=== PATIENT | female | born 2000 | race Caucasian/White ===

== ENCOUNTER 2022-02-17 21:32 | Emergency (ER) | payer BC, SELFPAY ==
[2022-02-17] VITALS (7 sets, daily range): BP systolic 107–119; BP diastolic 74–98; PULSE 76–95; RESP 17–22; TEMP 36.9; O2SAT 100
--- NOTE | ~2022-02-17 | CT_ITS ---
EXAMINATION: CT abdomen pelvis w con DATE: 02/18/2022 00:16 INDICATION: Low abdominal pain. Diarrhea. TECHNIQUE: Computed tomography (CT) of the abdomen and pelvis was performed with 100 mL Omnipaque 350 intravenous contrast. Automated exposure control and iterative reconstruction technique were employe d. The dose-length product was 526.52 mGy-cm. COMPARISON: None. FINDINGS: The visualized portions of the lung bases demonstrate minimal atelectasis. No pleural effus ion. The heart size is normal. No pericardial effusion. The liver, gallbladder, spleen, pancreas, adr enal glands, and right kidney are normal. There is a 5 mm stone in left kidney. There are no dilated loops of bowel. The appendix is not visualized. There are no pathologically enlarged lymph nodes. The re is physiologic fluid in the pelvis. The bones are unremarkable. IMPRESSION: 1. No etiology for the patient's symptoms. Reviewed, dictated and finalized at location A.
[2022-02-17 22:01] LABS: Basophils Percent Auto 0.5 % (0.2-1.2); Eosinophils Absolute Auto 0.2 K/mm3 (0-0.3); Eosinophils Percent Auto 1.7 % (0-4.4); Hematocrit 42.7 % (37.0-47.0); Hemoglobin 14.2 g/dL (12.0-15.0); Immature Granulocyte Absolute 0.02 K/mm3 (0.00-0.031); Immature Granulocyte Percent A 0.2 % (0-0.5); Lymphocytes Percent Auto 48.9 % (18.3-44.2); Mean Corpuscular HGB Conc 33.3 g/dl (32-36); Mean Corpuscular Hemoglobin 29.6 pg (26-34); Mean Corpuscular Volume 89.1 fl (80-100); Monocytes Absolute Auto 0.6 K/mm3 (0.1-0.6); Monocytes Percent Auto 6.3 % (2.6-8.5); Neutrophils Absolute Auto 3.7 K/mm3 (1.3-6.7); Neutrophils Percent Auto 42.4 % (45.5-73.1); Platelet Count Result 276 k/mm3 (150-375); Red Blood Count 4.79 M/mm3 (4.2-5.4); Red Cell Distribution Width 12.8 % (11.5-14.5); White Blood Count 8.8 K/mm3 (4.5-10.0)
--- NOTE | 2022-02-17 22:59 | ED.ABDPAIN ---
HPI - Abdominal Pain General Chief Complaint: Abdominal Pain <TYSHAWN Andres Last Filed: 02/18/22 01:40> Stated Complaint: DIARRHEA <TYSHAWN Andres Last Filed: 02/18/22 01:40> Time Seen by Provider: 02/17/22 22:00 <TYSHAWN Andres Last Filed: 02/18/22 01:40> Source: patient <TYSHAWN Andres Last Filed: 02/18/22 01:40> Mode of arrival: ambulatory <TYSHAWN Andres Last Filed: 02/18/22 01:40> Limitations: no limitations <TYSHAWN Andres Last Filed: 02/18/22 01:40> History of Present Illness HPI narrative: Patient is a 22-year-old female, with past medical history of IBS, who presents to the ED with report of persistent diarrhea. Patient reports she developed diarrhea on Tuesday. She has since had 11 episodes of diarrhea, 5 of which occurred today. She also reports having intermittent lower abdominal pain and nausea, but denies vomiting. No fevers. No urinary symptoms. Patient does have a history of IBS, but states this feels different. No blood in stool. No melena. <TYSHAWN Andres Last Filed: 02/18/22 01:40> Related Data Allergies/Adverse Reactions: Allergies Allergy/AdvReac Type Severity Reaction Status Date / Time amoxicillin Allergy Unknown Verified 02/17/22 21:36 ceftriaxone [From Rocephin] Allergy Unknown Verified 02/17/22 21:37 sumatriptan Allergy Difficulty Verified 02/17/22 21:37 Breathing <TYSHAWN Andres Last Filed: 02/18/22 01:40> Review of Systems Review of Systems: CONSTITUTIONAL: Denies fever, chills, or sweats. CARDIOVASCULAR: Denies chest pain. RESPIRATORY: Denies dyspnea. GASTROINTESTINAL: Reports lower ABD pain, nausea, diarrhea. Denies rectal bleeding, melena, vomiting. GENITOURINARY: Denies dysuria or hematuria. <Rosa Jay PA-C - Last Filed: 02/18/22 01:40> All systems reviewed & are unremarkable except as noted in HPI and below <Rosa Jay PA-C - Last Filed: 02/18/22 01:40> PMFSH Past Medical History Medical History: Medical History (Updated 02/18/22 @ 01:38 by Rosa Jay PA-C) IBS (irritable bowel syndrome) <Rosa Jay PA-C - Last Filed: 02/18/22 01:40> Surgical History Surgical History: Surgical History (Updated 02/17/22 @ 23:00 by Rosa Jay PA-C) No pertinent past surgical history <Rosa Jay PA-C - Last Filed: 02/18/22 01:40> Social History Social History: Social History (Updated 02/17/22 @ 23:00 by Rosa Jay PA-C) Smoking status: Never smoker <Rosa Jay PA-C - Last Filed: 02/18/22 01:40> Exam Narrative: GENERAL: Well appearing, well-nourished, non-toxic, in no acute distress. HEAD: Normocephalic, atraumatic. NECK: Supple. No adenopathy, no masses. RESPIRATORY: Airway patent, respirations nonlabored. Clear to auscultation bilaterally, no rales, rhonchi, wheezing. CARDIOVASCULAR: Regular rate and rhythm without murmurs, rubs, or gallops. Peripheral pulses 2+ and equal bilaterally. ABDOMINAL: Soft, mild nonlocalized tenderness throughout lower abdomen. Nondistended, no hepatosplenomegaly. Normoactive BS. MUSCULOSKELETAL: Moves all extremities. Strength/ROM intact without gross deformities. SKIN: Warm, dry, normal color. No rashes. NEURO: A&O X3. Speech clear. Cranial nerves II-XII grossly intact. Steady gait. No ataxic movements. PSYCHIATRIC: Appropriate mood and affect. Normal interaction. <Rosa Jay PA-C - Last Filed: 02/18/22 01:40> Course [employer]/PA Physician Supervision For this patient encounter, I reviewed the [employer] or PA documentation, treatment plan, and medical decision making <Satya Calero MD - Last Filed: 02/18/22 02:21> Vital Signs Vital signs: Vital Signs Temperature 98.4 F 02/17/22 21:33 Pulse Rate 86 02/17/22 21:33 Respiratory Rate 20 02/17/22 21:33 Pulse O
[2022-02-17 23:19] LABS: Appearance Urine Slightly Cloudy (Clear); Bilirubin Urine Negative (Negative); Blood Urine 2+ (Negative); Color Urine Yellow (Yellow); Glucose Urine UA Negative (Negative); Ketones Urine Trace mg/dL (Negative); Leukocyte Esterase Ur Trace LEU/UL (Negative); Nitrate Urine Negative (Negative); Protein Urine Negative (Negative); Specific Grav Ur >= 1.030 (1.001-1.035); Urobilinogen Urine 0.2 mg/dL (<2.0)
[2022-02-17 23:22] LABS: Bacteria Urine Trace /hpf; Mucus Urine Rare /lpf; Squamous Epithelial Cell Urine Many /hpf (Few)
[2022-02-17 23:34] LABS: Add Urine Microscopic? YES
[2022-02-17 23:35] LABS: Alanine Aminotransferase 15 U/L (6-35); Albumin Level 4.6 g/dL (3.5-5.1); Alkaline Phosphatase 82 U/L (38-126); Anion Gap 14 mmol/L (8-16); Aspartate Amino Transferase 32 U/L (14-36); Bilirubin,Total 0.3 mg/dL (0.2-1.3); Blood Urea Nitrogen 12 mg/dL (7-17); Calcium 9.4 mg/dL (8.4-10.2); Carbon Dioxide 27 mmol/L (22-30); Chloride 101 mmol/L (98-107); Estimated CRCL calculation 86 ml/min; Estimated Glomerular Filt Rate > 60; Glucose 106 mg/dL (65-110); Lipase 109 U/L (23-300); Potassium 3.4 mmol/L (3.4-5.0); Sodium 142 mmol/L (137-145)
[2022-02-17] MEDS: SODIUM CHLORIDE 0.9% IV 1,000 ML 999 ML IV CONT (23:40)
[2022-02-17] MEDS: ONDANSETRON INJ 4 MG/2 ML VIAL IV PUSH (23:40)
[2022-02-17 23:42] LABS: Pregnancy On Board Control Positive; Urine Pregnancy Test Negative
[2022-02-18 00:22] VITALS: PULSE 86; RESP 20; O2SAT 99
[2022-02-18 00:36] VITALS: BP 100/74; PULSE 85; RESP 22; O2SAT 100
[2022-02-18 01:06] VITALS: BP 112/63; PULSE 75; RESP 14; O2SAT 100
[2022-02-18 01:42] VITALS: BP 106/70; PULSE 79; RESP 20; O2SAT 100
== END 2022-02-18 01:42 | disposition home or self-care (01) ==
PROVIDERS: Emergency Provider Emergency Medicine; PCP Nurse Practitioner Adult Health
DX: K58.9 Irritable bowel syndrome, unspecified (principal); R82.90 Unspecified abnormal findings in urine
CPT/HCPCS: 36415; 74177; 80053; 81001; 81025; 83690; 85025; 87077; 87086; 87088; 96361; 96374; 96375; 99284; J0131; J2405; J7030; Q9967

== ENCOUNTER 2022-07-25 19:16 | Emergency (ER) | payer OTHER, BC, SELFPAY ==
[2022-07-25 19:27] VITALS: BP 130/80; PULSE 95; RESP 20; TEMP 36.3; O2SAT 100
--- NOTE | 2022-07-25 19:27 | ED.SKABFB ---
HPI - Skin/Abscess/Foreign Bdy General Chief complaint: Skin/Abscess/Foreign Body Stated complaint: face burn from hot sauce Time Seen by Provider: 07/25/22 19:36 Source: patient and RN notes reviewed Mode of arrival: ambulatory Limitations: no limitations History of Present Illness HPI narrative: 22-year-old female presents concern for burn your face that she sustained at work from pizza cheese sauce. She reports this happened just prior to her arrival, she got pizza sauce on her face, on the top of her lip and on the edge of her nostril. She washed her face and applied burn cream. She denies any trouble breathing. MD complaint: other (Burn) Related Data Home Medications Medication Instructions Recorded Confirmed cyanocobalamin (vitamin B-12) 1,000 mcg PO DIRECTED 07/25/22 07/25/22 1,000 mcg tablet (Vitamin B-12) fluoxetine 20 mg capsule 20 mg PO DAILY 07/25/22 07/25/22 norethindrone 1 mg-ethinyl 1 tablet PO DAILY 07/25/22 07/25/22 estradiol 20 mcg (24)-iron 75 mg (4) tablet (Blisovi 24 Fe) Allergies Allergy/AdvReac Type Severity Reaction Status Date / Time amoxicillin Allergy Unknown Verified 07/25/22 19:38 ceftriaxone [From Rocephin] Allergy Unknown Verified 07/25/22 19:38 sumatriptan Allergy Difficulty Verified 07/25/22 19:38 Breathing Review of Systems Review of Systems: CONSTITUTIONAL: Denies malaise, chills, sweats, or fever. EYES: Denies redness, or discharge. ENT: Denies rhinorrhea, congestion, swollen lips, swollen tongue CARDIOVASCULAR: Denies chest pain, palpitations, or edema. RESPIRATORY: Denies cough or dyspnea. GASTROINTESTINAL: Denies abdominal pain, nausea, vomiting SKIN: Reports second-degree burn on the face, lip, nostril MUSCULOSKELETAL: Denies joint pain or myalgia. NEUROLOGIC: Denies headache. All systems reviewed & are unremarkable except as noted in HPI and below PMFSH Past Medical History Medical History (Updated 07/25/22 @ 19:42 by Yumiko Simons NP) IBS (irritable bowel syndrome) Surgical History Surgical History (Updated 02/17/22 @ 23:00 by Rosa Jay PA-C) No pertinent past surgical history Social History Social History (Updated 02/17/22 @ 23:00 by Rosa Jay PA-C) Smoking status: Never smoker Comments At time of signature, agree with nursing past medical, surgical, social and family history. There is no relevant family history pertinent to the presenting complaint Exam Narrative: GENERAL: Well-appearing, well-nourished, and in no acute distress. HEAD: Normocephalic, atraumatic. EYES: PERRLA, conjunctivae clear, and EOMI. ENT: Mucous membranes moist. Oropharynx without edema, erythema or lesions. Nares clear, no injury or burn visible NECK: Supple. No lymphadenopathy CHEST: Clear to auscultation. No respiratory distress. HEART: Regular rate and rhythm. SKIN: Warm, dry. Less than 1 cm area of redness consistent with a second-degree burn on the right cheek, no other injury noted NEURO: Alert and oriented x3. PSYCH: Normal mood and affect Course Course Emergency Course: Patient is aware of diagnosis, understands and agrees to treatment plan. Anticipatory guidance given. Patient agrees to follow-up as directed and is aware of reasons to seek care at the emergency department. Portions of this record may have been created with voice recognition software Level of Care: Express Care Visit Vital Signs Vital signs: Reviewed. MDM - Skin/Abscess/Foreign Bdy MDM Narrative Medical decision making narrative: Exam findings show no acute concerns or changes; patient is non-toxic appearing and is in no distress. Patient is appropriate for outpatient treatment and follow-up. Critical Care Time Critical Care Time Critical Care Time: No Discharge Plan Discharge Clinical Impression: Second degree burn Patient Disposition: Home, Self-Care Condition: Stable Instructions: Second-Degree Burn (ED) Additional Ins
== END 2022-07-25 19:47 | disposition home or self-care (01) ==
PROVIDERS: Emergency Provider Nurse Practitioner
DX: T20.26XA Burn of second degree of forehead and cheek, initial encounter (principal); T20.22XA Burn of second degree of lip(s), initial encounter; T20.24XA Burn of second degree of nose (septum), initial encounter; T31.0 Burns involving less than 10% of body surface; X10.1XXA Contact with hot food, initial encounter
CPT/HCPCS: 99213; G0463